=== PATIENT | female | born 2000 | race Two or more races ===

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

== ENCOUNTER 2020-01-03 14:17 | Emergency (ER) | payer OTHER ==
[~2020-01-03] VITALS: Ht 152.4 cm; Wt 90.0 kg
[~2020-01-03 14:17] MED LIST changes: -BENZ100C PO; -METH4TAB2 PO
--- NOTE | 2020-01-03 16:21 | RAD ---
Chest radiograph 01/03/2020 3:30 PM INDICATION: Productive cough with blood streaked sputum COMPARISON: None available TECHNIQUE: Frontal and lateral views of the chest are provided. FINDINGS: The cardiomediastinal silhouette is within normal limits. There are no pleural effusions. There is no pulmonary vascular congestion. There is no pneumothorax. The lungs are clear. No significant osseous abnormality is identified. IMPRESSION: No acute cardiopulmonary process. Electronically signed by: Gabbie Holliday MD (01/03/2020 4:18 PM) [id number]
--- NOTE | 2020-01-03 16:25 | ED.ADGEN ---
Past Medical History Past Medical History: No Pertinent History Past Surgical History: No Surgical History Smoking Status: Current Some Day Smoker Alcohol Use: Occasionally General Adult EDM: Chief Complaint: COUGH HPI: HPI: Patient is a 19 year old female, accompanied by her significant other, who presents to the emergency department with complaints of a productive cough for the last 4 days. Patient reports that until today the sputum that she was cough ing up was clear. This morning she coughed up clear sputum with blood in it. She denies any fever, shortness of breath, ear pain, headache, dizziness, nausea, vomiting, diarrhea, abdominal pain, sore throat, rash, body aches, or fatigue. Patient reports pain in her left lower anterior ribs with coughing, deep inspiration, and palpation. She denies any wheezing or injury. She denies any known exposure to COVID-19 or influenza. She currently rates her pain a 5 out of 10 on the pain scale, she denies any alleviating factors, exacerbating factors as documented above. Review of Systems: Review of Systems: Complete ROS is negative unless otherwise noted in HPI. Allergies: Allergies: Allergies Coded Allergies Type Severity Reaction Last Updated Verified No Known Drug Allergies 11/20/19 No Physical Exam: PE: See Above Constitutional: Well developed, well nourished, no acute distress, non-toxic appearance. [] HENT: Normocephalic, atraumatic, bilateral external ears normal, nose normal. [] Eyes: PERRLA, EOMI, conjunctiva normal, no discharge. [] Neck: Normal range of motion, no stridor. [] Cardiovascular:Heart rate regular rhythm Lungs & Thorax: Respirations even and unlabored, no retractions, no respiratory distress, lungs CTA; left anterior lower rib tenderness to palpation without crepitus, no subcutaneous emphysema, OR obvious deformity Abdomen: soft, no tenderness Skin: Warm, dry, no erythema, no rash. [] Extremities: No cyanosis, ROM intact, no edema. [] Neurologic: Alert and oriented X 3, no focal deficits noted. [] Psychologic: Affect normal, judgement normal, mood normal. [] Current Patient Data: Vital Signs: Vital Signs Date Time Temp Pulse Resp B/P (MAP) Pulse Ox O2 Delivery O2 Flow Rate FiO2 01/03/20 14:40 97.2 92 18 117/72 (87) 99 Room Air 97.2 EKG: EKG: [] Heart Score: Risk Factors: Risk Factors: DM, Current or recent (<one month) smoker, HTN, HLP, family history of CAD, obesity. Risk Scores: Score 0 - 3: 2.5% MACE over next 6 weeks - Discharge Home Score 4 - 6: 20.3% MACE over next 6 weeks - Admit for Clinical Observation Score 7 - 10: 72.7% MACE over next 6 weeks - Early Invasive Strategies Radiology/Procedures: Radiology/Procedures: PROCEDURE: CHEST PA & LATERAL Chest radiograph 01/03/2020 3:30 PM INDICATION: Productive cough with blood streaked sputum COMPARISON: None available TECHNIQUE: Frontal and lateral views of the chest are provided. FINDINGS: The cardiomediastinal silhouette is within normal limits. There are no pleural effusions. There is no pulmonary vascular congestion. There is no pneumothorax. The lungs are clear. No significant osseous abnormality is identified. IMPRESSION: No acute cardiopulmonary process.[] Course & Med Decision Making: Course & Med Decision Making Pertinent Labs and Imaging studies reviewed. (See chart for details) [] Dragon Disclaimer: Dragon Disclaimer: This electronic medical record was generated, in whole or in part, using a voice recognition dictation system. Departure Departure Impression: Primary Impression: Upper respiratory infection with cough and congestion Additional Impressions: Hemoptysis, unspecified Costochondritis, acute Disposition: 01 DC HOME SELF CARE/HOMELESS Condition: STABLE Referrals: ANTON BALDWIN APRN (PCP) Patient Instructions: Costochondritis, [id number], Hemoptysis-Brief, Upper Respiratory Infection, Adult, Fopc-mp-Rvva Additional Instructions: Fill prescription(s) and use as directed. Recommend use of a Cool mist humidif ier in room at bedtime. Alternate Tylenol or ibuprofen as needed for pain/fever. Increase clear fluids. Avoid airway triggers such as smoke, fragrance, dust, and pollen. Follow-up with your primary care doctor iN 1-2 days, return to the ER if symptoms worsen. Scripts Methylprednisolone (MEDROL) 4 Mg Tab.ds.pk 1 PKG PO UD for 6 Days, #1 PKG 0 Refills Prov: RAMY GALDAMEZ APRN 01/03/20 Benzonatate (TESSALON PERLE) 100 Mg Capsule 1 CAP PO TID PRN for COUGH for 7 Days, #21 CAP 0 Refills Prov: RAMY GALDAMEZ APRN 01/03/20 Problem Qualifiers RAMY GALDAMEZ APRN Jan 03, 2020 16:25
[2020-01-03] MEDS ORDERED: METH4TAB2 PO (16:33)
[2020-01-03] MEDS ORDERED: BENZ100C PO (16:33)
[2020-01-03 17:10] VITALS: BP 117/74
== END 2020-01-03 17:10 | disposition home or self-care (01) ==
LOC: ER 14:17
DX: M94.0 Chondrocostal junction syndrome [Tietze] (principal); J06.9 Acute upper respiratory infection, unspecified; R04.2 Hemoptysis; F17.200 Nicotine dependence, unspecified, uncomplicated
CPT/HCPCS: 71046; 99283

== ENCOUNTER → 2020-01-06 | Outpatient (CLI) | payer OTHER ==
[2020-01-03 17:10] VITALS: BP 117/74
[~2020-01-06] MED LIST changes: +BENZ100C PO; +METH4TAB2 PO
--- NOTE | 2020-01-06 14:38 | RAD ---
EXAMINATION: BREAST LEFT, 01/06/2020 1:30 PM CLINICAL INDICATION: 19-year-old woman presenting with medial left breast pain. No palpable abnormality. COMPARISON: None. TECHNIQUE: Targeted ultrasound of the medial left breast in area of pain was performed. FINDINGS: There is normal fibroglandular tissue. No cyst or mass identified. IMPRESSION: 1. Normal breast tissue. No evidence of malignancy. 2. BI-RADS 1: Negative. 3. Recommend annual screening mammograms beginning at age 40. Electronically signed by: Luly Hernandez MD (01/06/2020 2:35 PM) [id number]
== END ==
LOC: US 13:46
PROVIDERS: ATTEND Nurse Practitioner Family
DX: N64.4 Mastodynia (principal)
CPT/HCPCS: 76641